=== PATIENT | male | born 1965 | race Caucasian/White ===

== ENCOUNTER 2017-05-17 09:12 | Emergency (ER) | payer OTHER, MEDICAID ==
--- NOTE | 2017-05-17 09:21 | CPEKG ---
Heart Rate: 102 RR Interval: 588 P-R Interval: 148 QRSD Interval: 84 QT Interval: 352 QTC Interval: 459 P Vance: 82 QRS Vance: 82 T Wave Vance: 54 EKG Severity - ABNORMAL ECG - EKG Impression: SINUS TACHYCARDIA EKG Impression: RIGHT ATRIAL ABNORMALITY EKG Impression: BORDERLINE INFERIOR Q WAVES EKG Impression: CONSIDER ANTERIOR INFARCT Electronically Signed By: Caitlin Matamoros 17-May-2017 16:10:13
[2017-05-17 09:22] VITALS: TEMP 97.9
--- NOTE | 2017-05-17 09:22 | EDPHY ---
H & P Time Seen by Provider: 05/17/17 09:19 HPI/ROS: CHIEF COMPLAINT: Neck, back, and chest pain HISTORY OF PRESENT ILLNESS: This patient is a 52-year-old male who presents to the Emergency Department complaining of gradually increasing neck, back, and chest pain beginning when he awoke at 100 this morning. He has a history of chronic back and neck pain secondary to scoliosis and degenerative disc disease and recently began chiropractic treatment two weeks ago. His pain is exacerbated with movement and is more severe than at baseline. He also describes pain localized to his left upper chest with associated left arm numbness for unclear duration. He denies dyspnea, diaphoresis, nausea, vomiting , or additional complaints. He reports increased fatigue yesterday but attributes this to a particularly stressful weekend. He has no additional complaints. Medical history includes OCD, PTSD, and bipolar disorder. Cardiac history: No history of hypertension or diabetes. Smokes tobacco regularly. CAD in father but no RI prior to age 56. REVIEW OF SYSTEMS: Constitutional: No fever, no chills Eyes: No visual changes ENT: No sore throat Respiratory: No cough, no shortness of breath Cardiac: +chest pain Gastrointestinal: No nausea, no vomiting, no abdominal pain Genitourinary: No hematuria, no dysuria Musculoskeletal: +back pain, +neck pain, no leg pain or swelling Skin: No rash Neurological: No headache, no numbness, no weakness Psychiatric: +anxiety, no depression Past Medical/Surgical History: 1. OCD, PTSD, bipolar disorder with psychotic features 2. Degenerative disc disease in lumbar spine 3. Cervical and thoracic scoliosis Social History: Disabled. Lives independently. Smokes 0.5 cartons of cigarettes weekly. Drinks occasionally. Smoking Status: Current every day smoker Physical Exam: General Appearance: Alert, no distress Eyes: Pupils equal and round, no conjunctival pallor or injection ENT, Mouth: Mucous membranes moist Neck: Normal inspection Respiratory: Lungs are clear to auscultation Cardiovascular: Regular rate and rhythm Gastrointestinal: Abdomen is soft and non- tender Musculoskeletal: Bilateral paraspinous and suprascapular tenderness, no midline T/L/S tenderness Neurological: A&O, nonfocal, normal gait Skin: Warm and dry, no rash Extremities: Nontender, no pedal edema Psychiatric: Mood and affect normal Constitutional: Initial Vital Signs Temperature (C) 36.6 C 05/17/17 09:15 Heart Rate 104 H 05/17/17 09:15 Respiratory Rate 18 05/17/17 09:15 Blood Pressure 108/78 05/17/17 09:15 O2 Sat (%) 94 05/17/17 09:15 O2 Delivery Mode Room Air Allergies/Adverse Reactions: amoxicillin trihydrate [From Augmentin] Allergy (Mild, Verified 05/17/17 09:20) rash,GI aspirin Allergy (Mild, Verified 05/17/17 09:20) rash,GI celecoxib [From Celebrex] Allergy (Mild, Verified 05/17/17 09:20) rash,GI codeine [Codeine] Allergy (Mild, Verified 05/17/17 09:20) rash,GI potassium clavula *RETIRED-08/08/12 [From Augmentin] Allergy (Verified 09/14/11 12:05) Home Medications: Medication Instructions Recorded [place] Carbonate [[place] 300 mg PO BID 09/14/11 Carbonate Tab 300 mg (*)] Cyclobenzaprine [Flexeril 10 MG 10 mg PO TID PRN 12/06/13 (RX)] Diclofenac Sodium [Voltaren] 75 mg PO BID 12/06/13 Hydrocodone Bit/Acetaminophen 1 each PO Q6 PRN 12/06/13 [Lortab 5-500 Tablet] OLANZapine [Zyprexa] 15 mg PO HS 12/06/13 QUEtiapine FUMARATE [SEROquel] 300 mg PO HS 12/06/13 Medical Decision Making - Diagnostics EKG Interpretation: EKG interpreted by me reveals normal sinus tachycardia, rate 102; poor R wave progression; prominent T waves anteriorly. ED Course/Re-evaluation: 52-year-old male with history of scoliosis and degenerative disc disease presents with primary complaint of an acute exacerbation of chronic thoracic and cervical pain. Assoc with significant anxiety. He does report left anterior chest pain and left arm numbness but this appears to be a secondary concern for him. On exam, he is mildly tachycardic at 104 and anxious appearing. He has diffuse bilateral paraspinous tenderness but no midline tenderness to palpation of the C/T/L/S. Will proceed with cardiac workup given patient's complaint of chest pain. He is allergic to aspirin. stat EKG reveals no ischemic changes and no significant dysrhythmia. Laboratory results reviewed and reveal an anion gap metabolic acidosis. Most likely secondary to dehydration. IV normal saline 1 L given. I do not suspect alternative etiology in this pt. Troponin is negative. Chest x-ray reviewed and is non-acute. 1042: On reevaluation, the patient is feeling much better. His lightheadedness has improved. He is not currently experiencing any chest discomfort and is no longer tachycardic. Anxiety has subsided. Chemistries were repeated following administration of IV fluids and have improved. I do not feel that further cardiac eval is indicated in this pt. I discussed lab and imaging results with the patient. I encouraged him to increase his fluid intake. He is given Ibuprofen instructions and follow-up with his PCP for further evaluation of chronic pain. He is agreeable to this and will be discharged home in good condition. Differential Diagnosis: includes though not limited to radiculopathy, epidural abscess, disciitis, ACS, PE, PTX - Data Points Laboratory Results: Laboratory Results 05/17/17 09:23 05/17/17 11:01 Medications Given: Discontinued Medications Sodium Chloride (Ns) 1,000 mls @ 0 mls/hr IV ONCE ONE; Wide Open PRN Reason: Protocol Stop: 05/17/17 09:52 Last Admin: 05/17/17 10:09 Dose: 1,000 mls Departure - Departure Disposition: Home, Routine, Self-Care Clinical Impression: Dehydration Back pain Qualifiers: Back pain location: thoracic back pain Chronicity: acute Back pain laterality: bilateral Qualified Code(s): M54.6 - Pain in thoracic spine Chest pain Qualifiers: Chest pain type: unspecified Qualified Code(s): R07.9 - Chest pain, unspecified Condition: Good Instructions: Dehydration (ED), Chest Pain (ED) Additional Instructions: 1. You were dehydrated today. Increase your fluid intake. 2. Return to the Emergency Department if you experience increased chest pain, shortness of breath, nausea or vomiting, weakness or lightheadedness, or for other serious concerns. 3. Follow-up with your primary care provider for any unresolved concerns in 3-5 days. Referrals: Jennifer Lopez PA [Primary Care Provider] - As per Instructions Report Scribed for: Caitlin Matamoros Report Scribed by: Bernice Keiht Date of Report: 05/17/17 Time of Report: 09:22 Physician Review and Approval Statement: 05/17/17 09:22 Portions of this note were transcribed by a biomedical engineer. I personally performed a history, physical exam, medical decision making, and confirmed accuracy of information the transcribed note.
[2017-05-17 09:34] LABS: % IMMATURE GRANULYOCYTES 0.4 % (0.0-1.1); ABSOLUTE IMMATURE GRANULOCYTES 0.03 10^3/uL (0.00-0.10); ADD DIFF? NO; ADD MORPH? NO; ADD SCAN? NO; ATYPICAL LYMPHOCYTE FLAG 30 (0-99); FRAGMENT RBC FLAG 10 (0-99); HEMATOCRIT 45.7 % (40.0-51.0); LEFT SHIFT FLG 0 (0-99); LIPEMIA HEMOLYSIS FLAG 80 (0-99); MEAN CELL HEMOGLOBIN 32.8 pg (27.9-34.1); MEAN CELL HEMOGLOBIN CONCENTR. 32.8 g/dL (32.4-36.7); MEAN PLATELET VOLUME 10.3 fL (8.7-11.7); PLATELET CLUMPS FLAG 0 (0-99); PLATELET COUNT 204 10^3/uL (150-400); RED BLOOD CELL COUNT 4.57 10^6/uL (4.40-6.38); RED CELL DISTRIBUTION WIDTH 13.1 % (11.5-15.2)
[2017-05-17 09:45] LABS: ANION GAP 20 mEq/L (8-16); CALCIUM 9.9 mg/dL (8.5-10.4); CARBON DIOXIDE 15 mEq/l (22-31); CHLORIDE 105 mEq/L (97-110); CREATININE 1.4 mg/dL (0.7-1.3); GLOMERULAR FILTRATION RATE 53; GLUCOSE 85 mg/dL (70-100); POTASSIUM 3.8 mEq/L (3.5-5.2); SODIUM 140 mEq/L (134-144)
[2017-05-17] MEDS ORDERED: NS 1,000 ML IV ONE (09:51)
[2017-05-17 09:57] LABS: TROPONIN I < 0.012 ng/mL (0-0.034)
[2017-05-17 11:07] VITALS: RESP 14
[2017-05-17 11:16] VITALS: BP 105/76; PULSE 72
[2017-05-17 11:28] LABS: ANION GAP 11 mEq/L (8-16); CALCIUM 8.6 mg/dL (8.5-10.4); CARBON DIOXIDE 19 mEq/l (22-31); CHLORIDE 107 mEq/L (97-110); CREATININE 1.2 mg/dL (0.7-1.3); GLOMERULAR FILTRATION RATE > 60; GLUCOSE 83 mg/dL (70-100); POTASSIUM 4.2 mEq/L (3.5-5.2); SODIUM 137 mEq/L (134-144)
[2017-05-17 11:46] VITALS: O2SAT 97
== END 2017-05-17 11:45 | disposition home or self-care (01) ==
DX: R07.9 Chest pain, unspecified (principal); M54.6 Pain in thoracic spine; E86.0 Dehydration; F17.210 Nicotine dependence, cigarettes, uncomplicated

== ENCOUNTER 2019-03-03 13:13 | Emergency (ER) | payer OTHER, MEDICAID ==
--- NOTE | 2019-03-03 13:52 | EDPHY ---
H & P Time Seen by Provider: 03/03/19 13:40 HPI/ROS: CHIEF COMPLAINT: Right hand pain post punching refrigerator HISTORY OF PRESENT ILLNESS: 53-year-old male right-hand dominant states that 4 days ago he punched a refrigerator. He is complaining of right 5th metacarpal pain ever since. Denies suicidal or homicidal ideation . denies paresthesia. Denies sensory or motor deficits. PRIMARY CARE PROVIDER: REVIEW OF SYSTEMS: A ten point review of systems was performed and is negative with the exception of the items mentioned in the HPI PHYSICAL EXAM (Prior to examination, patient consented to physical exam, hands were washed and my usual and customary physical exam procedures followed) 1) GENERAL: Well-developed, well-nourished, alert and oriented. Appears to be in no acute distress. 2) HEAD: Normocephalic 3) HEENT: Pupils equal, round, reactive to light bilaterally. 4) LUNGS: Breathing comfortably. 5) MUSCULOSKELETAL: Tender to palpation 5th metacarpal. Soft compartments. Normal coloration. 6) SKIN: Subacute abrasion to the 3rd MCP with no signs of infection. 7) VASCULAR: pulses and cap refill present are brisk 8) NEUROLOGIC: Radial, ulnar, median nerve function intact with no deficits appreciated on exam DIFFERENTIAL DIAGNOSIS: in no particular order including but not limited to fracture, sprain, compartment syndrome Procedure: Splint an ulnar gutter Ortho Glass splint was applied by ER supply chain technician. After application of the splint I returned and re-examined the patient. The splint was adequately immobilizing the joint and distal to the splint the patient's circulation and sensation were intact. Patient shows no signs of compartment syndrome. Was given orthopedic precautions. Smoking Status: Current every day smoker Constitutional: Initial Vital Signs Temperature (C) 36.8 C 03/03/19 13:26 Heart Rate 77 03/03/19 13:26 Respiratory Rate 18 03/03/19 13:26 Blood Pressure 141/86 H 03/03/19 13:26 O2 Sat (%) 96 03/03/19 13:26 O2 Delivery Mode Room Air Allergies/Adverse Reactions: amoxicillin trihydrate [From Augmentin] Allergy (Mild, Verified 05/17/17 09:20) rash,GI aspirin Allergy (Mild, Verified 05/17/17 09:20) rash,GI celecoxib [From Celebrex] Allergy (Mild, Verified 05/17/17 09:20) rash,GI codeine [Codeine] Allergy (Mild, Verified 05/17/17 09:20) rash,GI potassium clavula *RETIRED-08/08/12 [From Augmentin] Allergy (Verified 09/14/11 12:05) Home Medications: Medication Instructions Recorded [place] Carbonate [[place] 300 mg PO BID 09/14/11 Carbonate Tab 300 mg (*)] Cyclobenzaprine [Flexeril 10 MG 10 mg PO TID PRN 12/06/13 (RX)] Diclofenac Sodium [Voltaren] 75 mg PO BID 12/06/13 Hydrocodone Bit/Acetaminophen 1 each PO Q6 PRN 12/06/13 [Lortab 5-500 Tablet] OLANZapine [Zyprexa] 15 mg PO HS 12/06/13 QUEtiapine FUMARATE [SEROquel] 300 mg PO HS 12/06/13 MDM/Departure - MDM Imaging Results: Imaging Impressions Hand X-Ray 03/03/19 13:30 Impression: Mildly angulated distal fifth metacarpal fracture. Images reviewed myself ED Course/Re-evaluation: Re-evaluation with serial exams. No evidence of open fracture. No evidence of cellulitis or infection. He has been immobilized. He will need follow-up with Hand surgery has been given this follow-up information. Patient feels comfortable being discharged. All questions and concerns addressed by myself. Patient given my usual and customary discharge precautions and instructions regarding their clinical impression. Care of patient under supervision of secondary supervising physician Dr Cardozo . - Depart Disposition: Home, Routine, Self-Care Clinical Impression: Boxer's fracture Qualifiers: Encounter type: initial encounter Fracture type: closed Qualified Code(s): S62.339A - Displaced fracture of neck of unspecified metacarpal bone, initial encounter for closed fracture Condition: Good Instructions: Hand Fracture (ED) Additional Instructions: Return to the ER immediately if you experience discoloration, have worsening pain, numbness, tingling, or any other symptoms that concern you. If you received x-rays in the emergency department today, be advised, that ligamentous , tendon, muscular, and other non-bony injury cannot be fully ruled out. Try to keep your affected extremity elevated above the level of your chest, and keep cold packs on the affected area, for the next 48 hours. Referrals: Pedro Pablo Nugent MD [Medical Doctor] - 2-3 days, call for appt.
[2019-03-03 14:36] VITALS: BP 138/84
== END 2019-03-03 14:34 | disposition home or self-care (01) ==
PROC: 2W3EX1Z Immobilization of Right Hand using Splint (ICD-10-PCS; principal; 2019-03-03)
DX: S62.346A Nondisplaced fracture of base of fifth metacarpal bone, right hand, initial encounter for closed fracture (principal); W22.09XA Striking against other stationary object, initial encounter

== ENCOUNTER → 2019-04-12 | Outpatient (CLI) | payer OTHER, MEDICAID | LOC: BMCIMAGING 13:24 | PROVIDERS: ATTEND Orthopaedic Surgery | DX: S62.346A Nondisplaced fracture of base of fifth metacarpal bone, right hand, initial encounter for closed fracture (principal) ==